=== PATIENT | male | born 1980 | race Two or more races ===

== ENCOUNTER 2017-06-22 15:04 | Day surgery (SDC) | payer OTHER ==
[2017-06-18 09:04] LABS: APPEARANCE,URINE CLEAR; BILIRUBIN,URINE NEGATIVE (NEGATIVE); GLUCOSE, URINE NEGATIVE (NEGATIVE); KETONES,URINE NEGATIVE (NEGATIVE); LEUKOCYTE ESTERASE,URINE NEGATIVE (NEGATIVE); NITRITE,URINE NEGATIVE (NEGATIVE); PROTEIN,URINE NEGATIVE (NEGATIVE); URINE SPECIFIC GRAVITY 1.012; UROBILINOGEN,URINE NEGATIVE mg/dL (<2.0)
[2017-06-18 09:05] LABS: ABSOLUTE EOSINOPHILS # (AUTO) 0.1 10^3/uL (0.0-0.6); ABSOLUTE LYMPHOCYTES (AUTO) 1.7 10^3/uL (0.5-4.7); ABSOLUTE MONOCYTES (AUTO) 0.4 10^3/uL (0.1-1.4); ABSOLUTE NEUT (AUTO) 4.1 10^3/uL (1.7-8.2); BASOPHILS % (AUTO) 0.7 % (0-2); EOSINOPHILS % (AUTO) 1.3 % (0-6); HEMATOCRIT 44.2 % (37.9-51.0); HEMOGLOBIN 15.2 g/dL (13.5-17.0); HGB HCT DIFFERENCE 1.4; LYMPHOCYTES % (AUTO) 27.5 % (13-45); MEAN CORPUSCULAR HEMOGLOBIN 29.9 pg (27.0-33.4); MEAN CORPUSCULAR HGB CONC 34.4 g/dL (32.0-36.0); MEAN CORPUSCULAR VOLUME 87 fl (80-97); MONOCYTES % (AUTO) 6.2 % (3-13); RED BLOOD COUNT 5.09 10^6/uL (4.35-5.55); RED CELL DISTRIBUTION WIDTH 12.9 % (11.5-14.0); SEGMENTED NEUTROPHILS % (AUTO) 64.3 % (42-78); WHITE BLOOD COUNT 6.3 10^3/uL (4.0-10.5)
--- NOTE | 2017-06-18 09:26 | EKG REPORT ---
SEVERITY:- ABNORMAL ECG - SINUS RHYTHM PROBABLE INFERIOR INFARCT, AGE INDETERMINATE : Confirmed by: Lindsey Wagner 18-Jun-2017 09:25:10
[2017-06-18 09:39] LABS: ANION GAP 13 (5-19); BLOOD UREA NITROGEN 12 mg/dL (7-20); CALCIUM 9.6 mg/dL (8.4-10.2); CARBON DIOXIDE 27 mmol/L (22-30); CHLORIDE 103 mmol/L (98-107); CREATININE RESULT 1.14 mg/dL (0.52-1.25); GLUCOSE 86 mg/dL (75-110)
--- NOTE | 2017-06-18 10:19 | RADIOLOGY REPORT (SQ) ---
EXAM DESCRIPTION: CHEST PA/LATERAL COMPLETED DATE/TIME: 06/18/2017 9:36 am REASON FOR STUDY: PRE-OP COMPARISON: None. EXAM PARAMETERS: NUMBER OF VIEWS: two views TECHNIQUE: Digital Frontal and Lateral radiographic views of the chest acquired. RADIATION DOSE: NA LIMITATIONS: none FINDINGS: LUNGS AND PLEURA: No opacities, masses or pneumothorax. No pleural effusion. MEDIASTINUM AND HILAR STRUCTURES: No masses or contour abnormalities. HEART AND VASCULAR STRUCTURES: Heart normal size. No evidence for failure. BONES: No acute findings. HARDWARE: None in the chest. OTHER: No other significant finding. IMPRESSION: NO SIGNIFICANT RADIOGRAPHIC FINDING IN THE CHEST. TECHNICAL DOCUMENTATION: JOB ID: [id number] [employer]- All Rights Reserved
[~2017-06-22 15:04] MED LIST: CEFAZOLIN 2 GM/D5W RTU 2 GM/50 ML RTUPB IV PRN; DEXAMETHASONE SOD PHOSPHATE INJ 4 MG/1 ML VIAL ONE; LACTATED RINGERS 1000 ML IV PRN; LIDOCAINE 0.5% INJ-PF (5 MG/ML) 50 ML SDV SUBCUT PRN; LIDOCAINE 2% INJ-PF (20 MG/ML) 2 ML AMPUL ONE; ONDANSETRON HCL INJ/PF 4 MG/2 ML SDV ONE; SUCCINYLCHOLINE CHLORIDE INJ 200 MG/10 ML VIAL ONE
[2017-06-22] MEDS ORDERED: FENTANYL CITRATE INJ/PF 100 MCG/2 ML AMPUL ONE ×3 (18:02→20:48)
[2017-06-22] MEDS ORDERED: HYDROMORPHONE HCL INJ/PF 2 MG/ML AMPULE ONE (18:03)
[2017-06-22] MEDS ORDERED: ACETAMINOPHEN 100 ML IV ONE (18:03)
[2017-06-22] MEDS ORDERED: IBUPROFEN INJ 800 MG/8 ML VIAL IV ONE (18:03)
[2017-06-22] MEDS ORDERED: MIDAZOLAM 2 MG/2 ML INJ ONE (18:03)
[2017-06-22] MEDS ORDERED: PROPOFOL INJ 200 MG/20 ML VIAL IV ONE (18:03)
[2017-06-22] MEDS ORDERED: FENTANYL CITRATE INJ/PF 100 MCG/2 ML AMPUL IV PRN ×3 (18:42)
[2017-06-22] MEDS ORDERED: MORPHINE SULFATE 10 MG/ML INJ IV PRN (18:42)
[2017-06-22] MEDS ORDERED: MEPERIDINE HCL/PF INJ 25 MG/1 ML DISP.SYRIN IV PRN (18:42)
[2017-06-22] MEDS ORDERED: PROMETHAZINE HCL INJ 25 MG/1 ML VIAL IV PRN (18:42)
[2017-06-22] MEDS ORDERED: DIPHENHYDRAMINE HCL 50 MG/ML VIAL IV PRN (18:42)
[2017-06-22] MEDS ORDERED: BUPIVACAINE HCL 0.5 % INJ/PF 30 ML SDV ONE (19:06)
--- NOTE | 2017-06-22 20:36 | Operative Report ---
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 He attempted conservative measures including activity modification and therapy but continued to have discomfort and feelings of instability. At that point sent to me we discussed treatment options including operative versus nonoperative intervention. Risks and benefits were explained to the patient who verbalized understanding consented for the procedure. Procedure In Detail: Patient was seen and evaluated in the preoperative holding area. The LEFT upper extremity was initialized and marked. Patient received 2g of Ancef IV for bacterial prophylaxis. Patient was taken back to the operative room where transferred to the operative table and placed under general anesthesia. Once they were adequately anesthetized a nonsterile tourniquet was placed on the upper extremity. A surgical team debriefing was performed ensuring all instrumentation was available, the surgical procedure was discussed with possible concerns reviewed. The upper extremity was prepped with ChloraPrep and draped in a sterile fashion. A timeout was done identifying correct patient, procedure and extremity everyone in attendance agree with this and verbalized no concerns. The extremity was exsanguinated the tourniquet was inflated to 250 mmHg. Oblique skin incision was made along the radiocapitellar joint. Blunt dissection was performed. The interval between the ECU and anconeus was utilized. Blunt dissection was then performed in the radiocapitellar joint was opened staying superior to the equator to avoid inadvertent injury to the lateral ulnar collateral ligament. Inspection demonstrated no evidence of degenerative changes. There was evidence of significant tear of the lateral ulnar collateral ligament with notable laxity on examination. Thus the decision was made to proceed with lateral ulnar collateral ligament reconstruction. 2 transverse skin incision was made along the palmaris longus. Blunt dissection was performed the palmaris longus was isolated and removed. The proximal end was then secured with a whipstitch utilizing #2 Ethibond. This was then placed in a soft gauze on the back table. With the use of C-arm fluoroscopy the isometric point of the capitellum was obtained after a perfect lateral was confirmed. I then drilled the appropriate size tunnel for use of Arthrex swivel lock anchor. The origin of the lateral ulnar collateral ligament along the supinator crest was identified and the appropriate size drill hole placed. Both holes were then tapped. I first attempted use of the 4.75 forked tip anchors given patient's bone quality I was unable to get good fixation thus transition to the closed eyelit swivel lock anchors. Labral tape along with the end of my whipstitch were placed through the eyelet and the graft do not into the hole and secured. I then measured the appropriate size graft and the graft was placed into the capitellar insertion and a second swivel lock anchor and the other end of my labral tape was placed through the eyelit acting as a internal brace. I then proceeded with range of motion testing and there was equal tension throughout extension and flexion. C- arm fluoroscopy was obtained confirming stability of the ulnohumeral joint and radiocapitellar joint. The wound was then copiously irrigated with normal saline. Any peripheral bleeding was coagulated with bipolar cautery. Remnant of the lateral ulnar collateral ligament was reapproximated with 0 FiberWire suture. The fascia of Joyce's interval was closed with a running 0 Vicryl suture. Subcutaneous tissues were closed with 3-0 Monocryl. Skin was closed with a running subcuticular 3-0 Monocryl. [place] sites were irrigated and closed with subcuticular 4-0 Monocryl. Skin was reinforced with Dermabond and Steri- Strips. 20 cc of 0.5% Marcaine without epinephrine was injected for postoperative pain control. Patient was placed in a posterior plaster splint with the elbow at 45 of flexion. Tourniquet was deflated. Sponge counts, instrument counts, needle counts counts were correct. Patient was then awoken from anesthesia. Transferred from the operating room table to the operating room stretcher. There was no intraoperative complications patient tolerated procedure well stable to PACU. Postoperative plan: Patient will be placed in a hinged elbow brace at follow-up visit as per lateral ulnar collateral ligament reconstruction.
[2017-06-22] MEDS ORDERED: ONDANSETRON HCL INJ/PF 4 MG/2 ML SDV IV PRN (20:37)
[2017-06-22] MEDS ORDERED: HYDROMORPHONE HCL INJ/PF 2 MG/ML AMPULE IV PRN (20:37)
[2017-06-22] MEDS ORDERED: OXYCODONE-ACETAMINOPHEN 5-325 MG TABLET PO PRN (20:37)
--- NOTE | 2017-06-22 20:37 | PDOC DISCHARGE SUMMARY ---
Discharge Summary (SDC) - Discharge Final Diagnosis: Left elbow lateral ulnar collateral ligament tear Date of Surgery: 06/22/17 Discharge Date: 06/22/17 Condition: Good Treatment or Instructions: Schedule Follow Up w/ Dr. Bimal Weinberg @ [facility] for Surgery to be seen in 10-14 days or as scheduled [place]: [place]: [place]: Ice and elevate Keep splint clean/dry/intact. If your fingers become numb please unwrap the Vinnie wrap but leave the splint in place, if the sensation does not return within 30 minutes please return to the emergency department. May begin finger range of motion attempting to make full fist. Please use ibuprofen (Motrin or Advil) 600-800 mg every 8 hours as needed for pain or fever. You may also use acetaminophen (Tylenol) 1000 mg every 4-6 hours as needed for pain or fever. Please be aware that many medications contain acetaminophen, do not exceed a total of 1000 mg of acetaminophen every 6 hours. If ibuprofen and acetaminophen are not sufficient for your pain you may take the Percocet. Please be aware that the Percocet does contain Tylenol. Stool softener of choice when on pain medication. Prescriptions: Oxycodone HCl/Acetaminophen [Percocet 5-325 mg Tablet] 1 - 2 tab PO ASDIR PRN # 45 tablet PRN Reason: Discharge Diet: As Tolerated Respiratory Treatments at Home: Deep Breathing/Coughing, Incentive Spirometer Discharge Activity: No Lifting Over 10 Pounds, No Lifting/Push/Pulling Report the Following to Your Physician Immediately: Fever over 101 Degrees, Unusual Bleeding, Redness, Swelling, Warmth, Increased Soreness
--- NOTE | 2017-06-22 21:22 | RADIOLOGY REPORT (SQ) ---
EXAM DESCRIPTION: ELBOW LEFT AP/LATERAL COMPLETED DATE/TIME: 06/22/2017 8:53 pm REASON FOR STUDY: LIGAMENT REPAIR S53.432A RADIAL COLLATERAL LIGAMENT SPRAIN OF LEFT ELBOW, IN COMPARISON: None. FLUOROSCOPY TIME: 1.46 minute 3 images saved to PACS. TECHNIQUE: Intra-operative images acquired during surgical procedure to evaluate progress. NUMBER OF IMAGES: 3 images LIMITATIONS: None. FINDINGS: Fluoroscopic images were obtained during ligament repair of the left elbow. Please refer to the surgeon's operative report for additional information IMPRESSION: IMAGE(S) OBTAINED DURING PROCEDURE. COMMENT: Quality ID [id number]: Final reports for procedures using fluoroscopy that document radiation exp osure indices, or exposure time and number of fluorographic images (if radiation exposure indices are not available) Please consult full operative report of the attending physician for description of the procedure. TECHNICAL DOCUMENTATION: JOB ID: [id number] [employer]- All Rights Reserved
--- NOTE | 2017-06-22 21:23 | RADIOLOGY REPORT (SQ) ---
EXAM DESCRIPTION: NO CHG FLUORO COMPLETE DATE/TIME: 06/22/2017 8:53 pm REASON FOR STUDY: LIGAMENT REPAIR S53.432A RADIAL COLLATERAL LIGAMENT SPRAIN OF LEFT ELBOW, IN FINDINGS: Please see combined report for performance of procedure and radiologic supervision and int erpretation. IMPRESSION: Please see combined report for performance of procedure and radiologic supervision and i nterpretation.
[2017-06-22 22:33] VITALS: BP 115/78
== END 2017-06-22 22:57 | disposition home or self-care (01) ==
LOC: OROUT 15:04 → 5 21:48 → OROUT 22:57
PROVIDERS: ATTEND Orthopaedic Surgery
PROC: 0MU407Z Supplement Left Elbow Bursa and Ligament with Autologous Tissue Substitute, Open Approach (ICD-10-PCS; principal; 2017-06-22 17:15)
DX: S53.432A Radial collateral ligament sprain of left elbow, initial encounter (principal); X58.XXXA Exposure to other specified factors, initial encounter; Z79.1 Long term (current) use of non-steroidal anti-inflammatories (NSAID); Y93.75 Activity, martial arts
CPT/HCPCS: 93005; 36415; 85025; 80048; 81001; 71020; 73070; 93010; 24344; C1713; J2250; J1100; J3010; J0330; J2405; J2704; J0690; J0131; J1741; J3490; 01740; J1170